=== PATIENT | female | born 1945 | race Caucasian/White ===

== ENCOUNTER 2024-08-05 06:07 | Emergency (ER) | payer OTHER, SELFPAY ==
[2024-08-05 06:12] VITALS: PULSE 85; O2SAT 95
--- NOTE | 2024-08-05 06:26 | EDNOTE_ITS ---
ED Fall Injury RME/HPI General Chief Complaint: Fall Stated Complaint: HIP AND BACK PAIN Time Seen by Provider: 08/05/24 06:25 Arrival date/time: 08/05/24 06:07 RME / HPI RME / HPI Narrative: DR. TRAVIS MAIN ED EVALUATION: 79 year old female presents to the Emergency Department [facility] with complaint of fall with posterior pelvic pain and some lower back pain secondary to fall. Patient states she was in the restroom reaching for something and she fell after she lost balance. She fell on her right side. She states that she was able to get up and walk to the bedroom after the fall. Denies any blood thinners. Patient lives alone at home. PMHx: Denies any PMHx, daily medications, or known allergies. Appendectomy ~12 years ago. Social Hx: Chronic daily tobacco smoker. No alcohol or substance use. Related Data Previous Rx's ?Medication ?Instructions ?Recorded docusate sodium 100 mg capsule 100 mg PO BID PRN const ipation #10 08/05/24 (Colace) caps hydrocodone 5 mg-acetaminophen 325 0.5 tab PO Q8H PRN pain #10 tabs 08/05/24 mg tablet Allergies Allergy/AdvReac Type Severity Reaction Status Date / Time No Known Allergies Allergy Verified 08/05/24 06:16 Review of Systems Review of Systems Systems Reviewed: All systems reviewed, normal except as documented Narrative Review of Systems: GEN: No fever, no chills, no weight loss EYES: No discharge, no visual changes, no pain HEENT: No ear pain, no congestion, no sore throat PULM: No shortness of breath, no cough, no congestion CV: No chest pain, no dyspnea on exertion, no palpitations GI: No nausea, no vomiting, no diarrhea, no pain, no constipation : No frequency, no urgency and no dysuria MUSC/SKEL: + posterior pelvic pain and some lower back pain secondary to fall SKIN: No rash PSYCH: No hallucinations, no depression HEME/LYMPH: No easy bleeding or bruising tendencies NEURO: No weakness, no headache Past Medical History Social History SMOKING STATUS: Current every day smoker SUBSTANCE USE: does not use ALCOHOL: Never ED Exam Narrative Physical exam: GENERAL APPEARANCE: AxOx4, generally well-appearing, no acute distress. HEENT: NC, AT. MMM. EOMI, clear conjunctiva, oropharynx clear. NECK: Supple without lymphadenopathy. No stiffness or restricted ROM. HEART: Normal rate and regular rhythm, normal S1/S1, no m/r/g LUNGS: CTAB, moving air well. No crackles or wheezes are heard. ABDOMEN: Soft, nontender, nondistended with good bowel sounds heard. BACK: There is L 4-5 midline tenderness; no deformity and no step offs. EXTREMITIES: Without cyanosis, clubbing or edema. MUSCULOSKELETAL: Tender to palpation of the pelvis but pelvis is stable. FROM of bilateral hip joints, internal and external rotation is normal. No chest tenderness NEUROLOGICAL: Grossly nonfocal. Alert and oriented, moving all 4 extremities. CN not formally tested but appear grossly intact. Skin: Warm and dry without any rash. Course Quality Measures none Orders Category Date Time Status Crutches .NOW Care 08/05/24 11:[address] lumbar spine wo con Stat Exams 08/05/24 09:[address] pelvis wo con Stat Exams 08/05/24 08:20 Completed XR lumbar spine 2-3V Stat Exams 08/05/24 06:28 Completed XR pelvis min 3V Stat Exams 08/05/24 06:28 Completed HYDROcodone*/APAP 5/325 [[place] 5/325] Med 08/05/24 11:10 Discontinued 1 tab PO X1 ONE Reevaluation(s) Reevaluation #1: Patient lives alone at home, she states she uses a cane at home. Here after [place], she states she feels better and would like to go home. We tried crutches and she states she feels more comfortable with crutches than her cane. She denies rehab or anything similar and would like to go home. Time: 12:09 Vital Signs Vital signs: Vital Signs Temperature 98.9 F 08/05/24 06:37 Pulse Rate 82 08/05/24 06:37 Respiratory Rate 16 08/05/24 06:37 Blood Pressure 152/97 H 08/05/24 06:37 Pulse Oximetry (%) 96 08/05/24 06:37 Oxygen Delivery Method Room Air 08/05/24 06:37 Fall MDM Narrative MDM Narrative:: I, Evette Park, am scribing for and in the presence of Dr. Travis. 0820: Patient has extensive bone demineralization cannot tell if there are any fractures will order CTs. Patient data External records reviewed:: EMS form Clinical information provided by:: patient and EMS Social determinants that could affect healthcare access:: other (specify) (Chronic daily tobacco smoker.) Patient has the following chronic illnesses:: Denies any PMHx, daily medications, or known allergies. Appendectomy ~12 years ago. How is presenting disease/condition affected by chronic disease/condition?: no chronic disease Evaluation data The following diagnostics were reviewed and interpreted by me:: radiology exam(s) Lab and/or radiology exams considered but not ordered:: none Interpretation Summary: Procedure(s): XR lumbar spine 2-3V Accession Number(s): [id number] cc: Jonathan Travis MD; Balbir Cowart MD; NO PRIMARY/FAMILY,PHYSICIAN~ Examination: Lumbar spine 3 views TECHNIQUE: AP lateral coned lateral lower lumbar spine 3 views Date and time: August 05, 2024 0736 hours INDICATIONS: Patient fell today with injury to lower back, lower back pain. FINDINGS: Severe osteopenia Impression of the superior endplate L3 which may be acute IMPRESSION: Recommend CT scan lumbar spine without contrast follow-up to confirm acute compression fracture L3 vertebral body Dictated By: Balbir Cowart MD Procedure(s): XR pelvis min 3V Accession Number(s): [id number] cc: Jonathan Travis MD; Balbir Cowart MD; NO PRIMARY/FAMILY,PHYSICIAN~ Examination: AP pelvis single view TECHNIQUE: Supine AP pelvis single view August 05, 2024 0740 hours is INDICATIONS: Patient fell today with injury of the pelvis, pelvic pain. FINDINGS: Severe osteopenia. No acute hip or pelvic fracture IMPRESSION: No acute hip or pelvic fracture Dictated By: Balbir Cowart MD Procedure(s): CT lumbar spine wo [facility] Accession Number(s): [id number] cc: Jonathan Travis MD; Balbir Cowart MD; NO PRIMARY/FAMILY,PHYSICIAN~ Examination: CT lumbar spine, without contrast. 2-D sagittal reconstructions. 2-D coronal reconstructions. 3-D reconstructions. Date and time of exam:August 05, 2024 1047 hours INDICATIONS: Ground-level fall today with injury to the lower back, lower back pain CTDI: vol (mGy):11.7 DLP: (mGycm):328 Technique: Multiple 1.25 mm axial sections of the lumbar spine without intravenous contrast have been obtained. 2-D sagittal and coronal reconstructions have been obtained. 3-D reconstructions have been obtained. Low dose protocols were performed. One or more of the following dose reduction techniques were used; automated exposure control, adjustment of the mA and/or KV according to patient size, use of iterative reconstruction technique. Findings: Severe osteopenia Severe partially acute appearing compression fracture T12, reduction in height 90% plus Retropulsion posterior inferior margin of this vertebral body 6 mm Moderate chronic compression fracture L3 Advanced disc narrowing L5-S1 L5-S1 3 mm central lumbar disc bulge L3-L4 4 mm central lumbar disc bulge IMPRESSION: Severe partially acute appearing compression fracture T12, reduction in height 90% plus, retropulsion of the posterior inferior margin of this vertebral body 6 mm Dictated By: Balbir Cowart MD Procedure(s): CT pelvis wo [facility] Accession Number(s): [id number] cc: Jonathan Travis MD; Balbir Cowart MD; NO PRIMARY/FAMILY,PHYSICIAN~ Examination: CT pelvis without intravenous contrast. 2-D sagittal and coronal reconstructions. Date and time of exam:August 05, 2024 0919 hours INDICATIONS: Patient fell this morning with injury to the right hip, right hip pain CTDI: vol (mGy) :3.8 DLP: (mGycm) : 112 Technique: Multiple 3 mm axial sections of the pelvis have been obtained with the 64 slice high resolution scanner. 2-D sagittal and coronal reconstructions. Low dose protocols were performed. One or more of the following dose reduction techniques were used; automated exposure control, adjustment of the mA and/or KV according to patient size, use of iterative reconstruction technique. Findings: Nondisplaced acute appearing fracture right first sacral wing axial image 40 Iliac bones intact Acute appearing nondisplaced fracture left superior pubic ramus at the symphysis coronal image 35 Nondisplaced acute fracture left inferior pubic ramus at the symphysis Hips intact IMPRESSION: Nondisplaced acute appearing fractures right first sacral wing Acute fractures left superior inferior pubic rami at the symphysis without significant displacement Hips intact No pelvic hematoma Dictated By: Balbir Cowart MD Medications / Prescriptions Medications or Prescriptions considered but not ordered:: none Medication administrations:: Medication Administration History Discontinued Medications Hydrocodone Bitart/Acetaminophen (Hydrocodone/Apap 5/325 Tablet) 1 tab PO X1 ONE Stop: 08/05/24 11:11 Last Admin: 08/05/24 11:17 Dose: 1 tab Documented By: VRS see above if any Consultations Consultation(s) initiated? (list below): No Diagnosis Fall Differential Diagnosis: other (pelvis fracture, lumbar fracture, lumbar strain) Most likely diagnosis given after review of the tests above:: Closed pelvic fracture Admission Indicated Admission indicated?: not indicated Admission Request Was there a request for admission?: No Disposition Plan Disposition Plan: Discharge Discharge Attestation Discharge Attestation: The patient and all family members were given an opportunity to ask questions and understood the discharge instructions. Discharge instructions specifically effects, indications for sooner follow up or return to the emergency department, and the expected course of current diagnosis. Patient condition: Stable Discharge Plan Plan Patient Disposition: HOME (Self Care) Prescriptions/Referrals Prescriptions/Med Rec: New hydrocodone-acetaminophen 5-325 mg tablet 0.5 tab PO Q8H MDD 1.5 PRN (Reason: pain) Qty: 10 0RF docusate sodium [Colace] 100 mg capsule 100 mg PO BID PRN (Reason: constipation) Qty: 10 0RF Referrals: No Primary/Family,Physician [Primary Care Provider] - In 1 week Problem List Clinical Impression: Closed pelvic fracture Patient/Caregiver Discharge Instructions Education Materials: ED Pelvic Fracture Additional Instructions: Follow-up with your primary care doctor in 3 to 5 days for recheck. You can return to the emergency department sooner if symptoms worsen or if you notice any new, concerning issues. Print Language: Malagasy Stand Alone Forms: [employer] Award Info., Patient Portal Info Letter
[2024-08-05 06:37] VITALS: BP 152/97; PULSE 82; RESP 16; TEMP 37.2; O2SAT 96
[2024-08-05 07:59] VITALS: BP 163/81; PULSE 76; RESP 17; TEMP 36.4; O2SAT 97
--- NOTE | 2024-08-05 08:20 | XR_ITS ---
Examination: CT pelvis without intravenous contrast. 2-D sagittal and coronal reconstructions. Date and time of exam:August 05, 2024 0919 hours INDICATIONS: Patient fell this morning with injury to the right hip, right hip pain CTDI: vol (mGy) :3.8 DLP: (mGycm) : 112 Technique: Multiple 3 mm axial sections of the pelvis have been obtained with the 64 slice high resolution scanner. 2-D sagittal and coronal reconstructions. Low dose protocols were performed. One or more of the following dose reduction techniques were used; automated exposure control, adjustment of the mA and/or KV according to patient size, use of iterative reconstruction technique. Findings: Nondisplaced acute appearing fracture right first sacral wing axial image 40 Iliac bones intact Acute appearing nondisplaced fracture left superior pubic ramus at the symphysis coronal image 35 Nondisplaced acute fracture left inferior pubic ramus at the symphysis Hips intact IMPRESSION: Nondisplaced acute appearing fractures right first sacral wing Acute fractures left superior inferior pubic rami at the symphysis without significant displacement Hips intact No pelvic hematoma
--- NOTE | 2024-08-05 09:48 | XR_ITS ---
Examination: CT lumbar spine, without contrast. 2-D sagittal reconstructions. 2-D coronal reconstructions. 3-D reconstructions. Date and time of exam:August 05, 2024 1047 hours INDICATIONS: Ground-level fall today with injury to the lower back, lower back pain CTDI: vol (mGy):11.7 DLP: (mGycm):328 Technique: Multiple 1.25 mm axial sections of the lumbar spine without intravenous contrast have been obtained. 2-D sagittal and coronal reconstructions have been obtained. 3-D reconstructions have been obtained. Low dose protocols were performed. One or more of the following dose reduction techniques were used; automated exposure control, adjustment of the mA and/or KV according to patient size, use of iterative reconstruction technique. Findings: Severe osteopenia Severe partially acute appearing compression fracture T12, reduction in height 90% plus Retropulsion posterior inferior margin of this vertebral body 6 mm Moderate chronic compression fracture L3 Advanced disc narrowing L5-S1 L5-S1 3 mm central lumbar disc bulge L3-L4 4 mm central lumbar disc bulge IMPRESSION: Severe partially acute appearing compression fracture T12, reduction in height 90% plus, retropulsion of the posterior inferior margin of this vertebral body 6 mm
[2024-08-05 10:07] VITALS: BP 167/85; PULSE 78; RESP 17; TEMP 36.8; O2SAT 95
[2024-08-05] MEDS: HYDROcodone/APAP 5/325 TABLET 1 TAB PO (11:17)
[2024-08-05 12:20] VITALS: BP 163/95; PULSE 86; RESP 17; TEMP 36.9; O2SAT 96
[2024-08-05 13:14] VITALS: PULSE 96; O2SAT 94
== END 2024-08-05 13:17 | disposition home or self-care (01) ==
PROVIDERS: Emergency Provider Emergency Medicine
DX: S32.512A Fracture of superior rim of left pubis, initial encounter for closed fracture (principal); S39.92XA Unspecified injury of lower back, initial encounter; W01.0XXA Fall on same level from slipping, tripping and stumbling without subsequent striking against object, initial encounter; Z60.2 Problems related to living alone
CPT/HCPCS: 72100; 72131; 72190; 72192; 99284; A9270